=== PATIENT | female | born 1985 | race American Indian/Alaskan Native ===

== ENCOUNTER 2017-03-30 14:56 | Emergency (ER) | payer OTHER ==
[2017-03-30 15:52] VITALS: BP 146/106
[2017-03-30] MEDS ORDERED: CLEOCIN 900 MG/50 mL 900 MG/50 ML BAG IV ONE (17:38)
[2017-03-30] MEDS ORDERED: TYLENOL PO ONE (17:38)
--- NOTE | 2017-03-30 17:44 | Emergency Department Report ---
ED General Adult HPI - General Chief complaint: Extremity Injury, Upper Stated complaint: CELLULITIS Time Seen by Provider: 03/30/17 17:20 Source: patient, EMS Mode of arrival: Stretcher Limitations: Other - History of Present Illness Initial comments: Patient is 31 years old female sent from [facility] for evaluation of right hand pain and swelling for the last 5 days. Patient was seen yesterday at [facility], diagnosed with cellulitis, discharged with an antibiotic, patient was sent here for re-evaluation. Patient denies fever, nausea or vomiting. 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 Severity scale (0 -10): 0 - Related Data Allergies Allergy/AdvReac Type Severity Reaction Status Date / Time No Known Allergies Allergy Unverified 03/30/17 15:04 ED Review of Systems ROS: Stated complaint: CELLULITIS Other details as noted in HPI Comment: All other systems reviewed and negative Constitutional: denies: chills, fever Respiratory: denies: cough, shortness of breath Cardiovascular: denies: chest pain, palpitations Gastrointestinal: denies: abdominal pain, nausea, vomiting Skin: denies: rash ED Past Medical Hx - Past Medical History Previous Medical History?: Yes Hx Psychiatric Treatment: Yes (etoh abuse) - Surgical History Past Surgical History?: No - Social History Smoking Status: Never Smoker ED Physical Exam - General Limitations: Other General appearance: alert, in no apparent distress - Head Head exam: Present: atraumatic, normocephalic, normal inspection - Eye Eye exam: Present: normal appearance, PERRL - ENT ENT exam: Present: normal exam, normal orophraynx, mucous membranes moist - Neck Neck exam: Present: normal inspection, full ROM. Absent: tenderness, meningismus - Respiratory Respiratory exam: Present: normal lung sounds bilaterally. Absent: respiratory distress, wheezes, rales, rhonchi, stridor, chest wall tenderness, accessory muscle use, decreased breath sounds, prolonged expiratory - Cardiovascular Cardiovascular Exam: Present: regular rate, normal rhythm, normal heart sounds - GI/Abdominal GI/Abdominal exam: Present: soft. Absent: distended, tenderness, guarding, rebound - Extremities Exam Extremities exam: Present: other (rt middle finger slightly swollen, erythematous and tender, good capillary refill. No clinical evidence of tenosynovitis) - Neurological Exam Neurological exam: Present: alert, oriented X3, CN II-XII intact, normal gait - Skin Skin exam: Present: warm, intact, normal color ED Course Vital Signs 03/30/17 03/30/17 15:51 15:52 Temperature 98.4 F Pulse Rate 73 Respiratory 18 18 Rate Blood Pressure 146/106 [Left] O2 Sat by Pulse 100 100 Oximetry ED Medical Decision Making - Lab Data Result diagrams: 03/30/17 18:30 03/30/17 17:37 - Radiology Data Radiology results: image reviewed interpreted by me: Right hand x-ray showed soft tissue swelling especially right middle finger. No evidence of fracture or dislocation. Critical care attestation.: If time is entered above; I have spent that time in minutes in the direct care of this critically ill patient, excluding procedure time. ED Disposition Clinical Impression: Cellulitis of right hand Disposition: [id number] PSY HOSP/PSY UNIT Is pt being admited?: No Condition: Stable Instructions: Cellulitis (ED) Referrals: PRIMARY CARE, [Primary Care Provider] - 3-5 Days
[2017-03-30 18:03] LABS: Bacteria,Urine 1+ /HPF (Negative); Bilirubin,Urine NEG (Negative); Blood,Urine NEG (Negative); Ketones,Urine NEG (Negative); Leukocyte Esterase,Urine TR (Negative); Mucus,Urine FEW /HPF; Nitrite,Urine NEG (Negative); Protein,Urine <15 mg/dL mg/dL (Negative); Urobilinogen,Urine < 2.0 mg/dL (<2.0)
[2017-03-30 18:57] LABS: Hematocrit 38.6 % (30.3-42.9); Mean Corpuscular HGB Conc 31 % (30-34); Mean Corpuscular Volume 76 fl (79-97); Platelet Count 230 K/mm3 (140-440); Red Blood Count 5.11 M/mm3 (3.65-5.03); Red Cell Distribution Width 16.9 % (13.2-15.2); White Blood Count 3.8 K/mm3 (4.5-11.0)
[2017-03-30 19:00] LABS: Mean Corpuscular Hemoglobin 23 pg (28-32)
[2017-03-30 19:16] LABS: Alanine Aminotransferase 18 units/L (7-56); Albumin 3.4 g/dL (3.9-5); Albumin/Globulin Ratio 0.8 %; Alkaline Phosphatase 77 units/L (35-129); Anion Gap 18 mmol/L; BUN/Creatinine Ratio 16; Blood Urea Nitrogen 8 mg/dL (7-17); Calcium 8.5 mg/dL (8.4-10.2); Carbon Dioxide 23 mmol/L (22-30); Chloride 101.5 mmol/L (98-107); Glucose 93 mg/dL (65-100); Potassium 4.3 mmol/L (3.6-5.0); Sodium 138 mmol/L (137-145); Total Protein 7.7 g/dL (6.3-8.2)
[2017-03-30 19:52] LABS: Basophils % (Manual) 0 % (0.0-1.8); Blastocytes % (Manual) 0 %
[2017-03-30 19:53] LABS: Anisocytosis 2+; Diff Status Complete; Microcytosis 1+
--- NOTE | 2017-03-30 20:20 | XRay Report ---
FINAL REPORT EXAM: XR HAND 2V RT HISTORY: rt hand swelling TECHNIQUE: Two views right hand Comparison: None FINDINGS: No trauma history was provided. Normal bony mineralization. No fracture or dislocation. Significant soft tissue swelling over the dorsum of the hand and of the 3rd digit. No radiopaque foreign body or soft tissue gas. IMPRESSION: Significant soft tissue swelling only. No fracture or dislocation identified. No trauma history provided. No radiopaque foreign body or soft tissue gas.
== END 2017-03-30 23:00 ==
LOC: ED 14:56
DX: L03.113 Cellulitis of right upper limb (principal)
CPT/HCPCS: 36415; 80053; 81001; 85007; 85025; 87040; 96365